=== PATIENT | female | born 1965 | race Caucasian/White ===

== ENCOUNTER 2020-03-02 14:19 | Outpatient (CLI) | payer BC, MEDICARE, SELFPAY ==
--- NOTE | 2020-03-08 15:48 | WPDPFTINT ---
PFT Interpretation PFT Interpretation: DOS: 03/02/2020 REQUESTING: Dr Philipp Addison REASON FOR TESTING: Cough, lung nodules PULMONARY FUNCTION TESTS Results are reproducible and reliable. Spirometry: FEV1 is 105%, 2.67 L. FVC 101%, FEV1% is 78%, all values are normal. No change with bronchodilator. Lung volumes: TLC 89%, normal. No air trapping, RV is 67%. Mild increase in airway resistance 134%. Diffusion: DLCO mildly decreased 69%. Flow volume loop: Normal. IMPRESSION: Normal spirometry and lung volumes. Mild increase in airway resistance and very mild decrease in diffusion. Low diffusion with normal spirometry can be seen in pulmonary vascular diseases such as chronic recurrent pulmonary emboli, idiopathic pulmonary hypertension, pulmonary vascular involvement with rheumatic diseases, anemia or early ILD. Clinical correlation is advised. Janice Bradley MD
== END 2020-03-02 14:20 | disposition home or self-care (01) ==
PROVIDERS: PCP Family Medicine
DX: R05 Cough (principal)
CPT/HCPCS: 94060; 94726; 94729